=== PATIENT | female | born 1985 | race Caucasian/White ===

== ENCOUNTER 2017-04-18 13:48 | Emergency (ER) | payer MEDICAID, OTHER ==
[~2017-04-18] VITALS: Ht 162.6 cm; Wt 77.0 kg
[~2017-04-18 13:48] MED LIST: Z.0.NO CURRENT MEDS
[2017-04-18 13:50] VITALS: BP 130/78; PULSE 108; RESP 20; TEMP 98.4; O2SAT 99
--- NOTE | 2017-04-18 14:11 | PD ---
Physical Exam Time Seen by Provider: 14:08 Narrative 31 year old female with C/O of lower ABD pain associated with urinary frequency , urgency & nausea. Severity 7/10. She denies vaginal discharge or flank pain. Patient seen at triage desk. VS reviewed. Patient waiting bed placement. Data Data Last Documented VS Vital Signs Date Time Temp Pulse Resp B/P Pulse Ox O2 Delivery O2 Flow Rate FiO2 04/18/17 13:50 98.4 108 20 130/78 99 Room Air MDM Supervised Visit with SYLVIE: Seda Rendon Apr 18, 2017 14:11
[2017-04-18] MEDS ORDERED: KETOROLAC TROMETHAMINE 30 MG/ML (IVP) VIAL IV PUSH ONE (16:30)
[2017-04-18] MEDS ORDERED: SODIUM CHLOR 0.9% 1000 ML INJ 1,000 ML IV ONE (16:30)
--- NOTE | 2017-04-18 17:00 | PD ---
HPI Chief Complaint: Complaint Time Seen by Provider: 15:51 Travel History International Travel<30 days: No Contact w/Intl Traveler<30days: No Traveled to known affect area: No History of Present Illness HPI Patient is a 31-year-old female comes in complaining of lower abdominal pain and bloating for 2 weeks. She says she has been constipated and had only small bowel movements recently. She says the pain is across the lower part of her abdomen, and has been getting worse. She denies nausea or vomiting. She denies fever or chills. She has taken ibuprofen for pain without much relief. She denies dysuria, but has had urgency and frequency. Her last menstrual period was 2 weeks ago. [facility] Past Medical History ADHD: Yes (HX CHILD) Blood Disorders: No Anxiety: Yes Depression: Yes Cancer: No Cardiovascular Problems: No Chemotherapy: No Cerebrovascular Accident: No Diminished Hearing: No Endocrine: No Glaucoma: No Genitourinary: No Headaches: No Immune Disorder: No Musculoskeletal: No Neurologic: No Psychiatric: No Reproductive: No Respiratory: Yes ("COLLAPSED LUNG") Immunizations Current: No Migraines: No Radiation Therapy: No Seizures: No ?: Not LMP: 04/11/17 : 3 Para: 2 Miscarriage: 1 Tubal Ligation: Yes (08/2008) Past Surgical History Abdominal Surgery: Yes ( 2002) AICD: No Arteriovenous Shunt: No Cardiac Surgery: No Section: Yes (X 2) Ear Surgery: No Endocrine Surgery: No Eye Surgery: No Genitourinary Surgery: No Gynecologic Surgery: No Insulin Pump: No Joint Replacement: No Oral Surgery: No Pacemaker: No Thoracic Surgery: No Other Surgery: Yes ( 2002) Social History Alcohol Use: No Tobacco Use: Yes (10 DAILY) Substance Use: Yes (LORTAB, ROXICONTIN, INJECTED CRYSTAL METH ) Allergies-Medications (Allergen,Severity, Reaction): Coded Allergies: No Known Allergies (Verified , 11/15/12) Reported Meds & Prescriptions Reported Meds & Active Scripts Active Ultram (Tramadol HCl) 50 Mg Tab 50 Mg PO Q6H PRN Reported No Current Meds (Miscellaneous Medication) Misc Review of Systems Except as stated in HPI: all other systems reviewed are Neg General / Constitutional: No: Fever, Chills HENT: No: Headaches, Lightheadedness Cardiovascular: No: Chest Pain or Discomfort Respiratory: No: Shortness of Breath Gastrointestinal: Positive: Abdominal Pain, Constipation, No: Nausea, Vomiting Genitourinary: Positive: Urgency, Frequency, No: Dysuria Skin: No Rash, No Change in Pigmentation Neurologic: No: Weakness, Dizziness Physical Exam Narrative GENERAL: Awake and alert, in no acute distress. SKIN: Focused skin assessment warm/dry. HEAD: Atraumatic. Normocephalic. EYES: Pupils equal and round. No scleral icterus. No injection or drainage. ENT: No nasal bleeding or discharge. Mucous membranes pink and moist. NECK: Trachea midline. No JVD. CARDIOVASCULAR: Regular rate and rhythm. No murmur appreciated. RESPIRATORY: No accessory muscle use. Clear to auscultation. Breath sounds equal bilaterally. GASTROINTESTINAL: Abdomen soft, nondistended. Tender to palpation of the right lower quadrant. No rebound or guarding. : Performed in the presence of a female nurse. White, thick discharge. No cervical lesions. No CMT. MUSCULOSKELETAL: No obvious deformities. No clubbing. No cyanosis. No edema. NEUROLOGICAL: Awake and alert. No obvious cranial nerve deficits. Motor grossly within normal limits. Normal speech. PSYCHIATRIC: Appropriate mood and affect; insight and judgment normal. Data Data Last Documented VS Vital Signs Date Time Temp Pulse Resp B/P Pulse Ox O2 Delivery O2 Flow Rate FiO2 04/18/17 18:25 16 04/18/17 17:51 80 122/72 100 Room Air 04/18/17 13:50 98.4 Orders Complete Blood Count With Diff (04/18/17 16:08) Comprehensive Metabolic Panel (04/18/17 16:08) Urinalysis - C+S If Indicated (04/18/17 16:08) Ed Urine Pregnancytest Poc (04/18/17 16:08) Ct Abd/Pel W Iv Contrast(Rout) (04/18/17 ) Ketorolac Inj (Toradol Inj) (04/18/17 16:30) Sodium Chlor 0.9% 1000 Ml Inj (Ns 1000 M (04/18/17 16:30) Wet Prep Profile (04/18/17 16:47) Gc And Chlamydia Pcr (04/18/17 16:47) Iohexol 350 Inj (Omnipaque 350 Inj) (04/18/17 17:31) Labs Laboratory Tests Test 04/18/17 04/18/17 16:50 16:54 Clue Cells (Wet Prep) NONE SEEN Vaginal Trichomonas (Wet Prep) NONE SEEN Vaginal Yeast (Wet Prep) NONE SEEN Chlamydia trachomatis DNA NOT DETECTED (PCR) Neisseria gonorrhoeae DNA NOT DETECTED (PCR) White Blood Count 7.6 TH/MM3 Red Blood Count 4.32 MIL/MM3 Hemoglobin 13.4 GM/DL Hematocrit 39.1 % Mean Corpuscular Volume 90.7 FL Mean Corpuscular Hemoglobin 31.1 PG Mean Corpuscular Hemoglobin 34.3 % Concent Red Cell Distribution Width 12.0 % Platelet Count 242 TH/MM3 Mean Platelet Volume 7.5 FL Neutrophils (%) (Auto) 66.8 % Lymphocytes (%) (Auto) 27.0 % Monocytes (%) (Auto) 5.0 % Eosinophils (%) (Auto) 0.9 % Basophils (%) (Auto) 0.3 % Neutrophils # (Auto) 5.1 TH/MM3 Lymphocytes # (Auto) 2.1 TH/MM3 Monocytes # (Auto) 0.4 TH/MM3 Eosinophils # (Auto) 0.1 TH/MM3 Basophils # (Auto) 0.0 TH/MM3 CBC Comment DIFF FINAL Differential Comment Urine Color LIGHT-YELLOW Urine Turbidity CLEAR Urine pH 8.0 Urine Specific [place] 1.008 Urine Protein NEG mg/dL Urine Glucose (UA) NEG mg/dL Urine Ketones NEG mg/dL Urine Occult Blood NEG Urine Nitrite NEG Urine Bilirubin NEG Urine Urobilinogen LESS THAN 2.0 MG/DL Urine Leukocyte Esterase NEG Urine Squamous Epithelial <1 /hpf Cells Microscopic Urinalysis Comment CULT NOT INDICATED Sodium Level 137 MEQ/L Potassium Level 3.9 MEQ/L Chloride Level 101 MEQ/L Carbon Dioxide Level 26.4 MEQ/L Anion Gap 10 MEQ/L Blood Urea Nitrogen 9 MG/DL Creatinine 0.73 MG/DL Estimat Glomerular Filtration 93 ML/MIN Rate Random Glucose 85 MG/DL Calcium Level 9.5 MG/DL Total Bilirubin 0.4 MG/DL Aspartate Amino Transf 15 U/L (AST/SGOT) Alanine Aminotransferase 33 U/L (ALT/SGPT) Alkaline Phosphatase 82 U/L Total Protein 8.2 GM/DL Albumin 4.5 GM/DL [facility] Medical Decision Making Medical Screen Exam Complete: Yes Emergency Medical Condition: Yes Medical Record Reviewed: Yes Differential Diagnosis UTI versus appendicitis versus ovarian cyst versus GC/chlamydia versus vaginosis Narrative Course Patient is a 31-year-old female comes in complaining of lower abdominal pain for 2 weeks. Exam shows right lower quadrant tenderness. IV started, labs sent. CT abdomen and pelvis ordered. Patient given Toradol and fluids. Patient signed out to Dr. Sweeney to follow-up tests and disposition the patient. Scripts Tramadol (Ultram)50 Mg Tab50 Mg PO Q6H PRN (PAIN) #20 TAB Ref 0 Prov:James Sweeney MD 04/18/17 Condition: Stable Ashly Longoria MD Apr 18, 2017 17:00
--- NOTE | 2017-04-18 17:16 | PD ---
Physical Exam Date Seen by Provider: Apr 18, 2017 Narrative received sign out from dr munroe awaiting ct results and pelvic specimen results, evaluation for appy vs toa vs uti Data Data Last Documented VS Vital Signs Date Time Temp Pulse Resp B/P Pulse Ox O2 Delivery O2 Flow Rate FiO2 04/18/17 18:25 16 04/18/17 17:51 80 122/72 100 Room Air 04/18/17 13:50 98.4 Orders Complete Blood Count With Diff (04/18/17 16:08) Comprehensive Metabolic Panel (04/18/17 16:08) Urinalysis - C+S If Indicated (04/18/17 16:08) Ed Urine Pregnancytest Poc (04/18/17 16:08) Ct Abd/Pel W Iv Contrast(Rout) (04/18/17 ) Ketorolac Inj (Toradol Inj) (04/18/17 16:30) Sodium Chlor 0.9% 1000 Ml Inj (Ns 1000 M (04/18/17 16:30) Wet Prep Profile (04/18/17 16:47) Gc And Chlamydia Pcr (04/18/17 16:47) Iohexol 350 Inj (Omnipaque 350 Inj) (04/18/17 17:31) Labs Laboratory Tests Test 04/18/17 04/18/17 16:50 16:54 Clue Cells (Wet Prep) NONE SEEN Vaginal Trichomonas (Wet Prep) NONE SEEN Vaginal Yeast (Wet Prep) NONE SEEN White Blood Count 7.6 TH/MM3 Red Blood Count 4.32 MIL/MM3 Hemoglobin 13.4 GM/DL Hematocrit 39.1 % Mean Corpuscular Volume 90.7 FL Mean Corpuscular Hemoglobin 31.1 PG Mean Corpuscular Hemoglobin 34.3 % Concent Red Cell Distribution Width 12.0 % Platelet Count 242 TH/MM3 Mean Platelet Volume 7.5 FL Neutrophils (%) (Auto) 66.8 % Lymphocytes (%) (Auto) 27.0 % Monocytes (%) (Auto) 5.0 % Eosinophils (%) (Auto) 0.9 % Basophils (%) (Auto) 0.3 % Neutrophils # (Auto) 5.1 TH/MM3 Lymphocytes # (Auto) 2.1 TH/MM3 Monocytes # (Auto) 0.4 TH/MM3 Eosinophils # (Auto) 0.1 TH/MM3 Basophils # (Auto) 0.0 TH/MM3 CBC Comment DIFF FINAL Differential Comment Urine Color LIGHT-YELLOW Urine Turbidity CLEAR Urine pH 8.0 Urine Specific [place] 1.008 Urine Protein NEG mg/dL Urine Glucose (UA) NEG mg/dL Urine Ketones NEG mg/dL Urine Occult Blood NEG Urine Nitrite NEG Urine Bilirubin NEG Urine Urobilinogen LESS THAN 2.0 MG/DL Urine Leukocyte Esterase NEG Urine Squamous Epithelial <1 /hpf Cells Microscopic Urinalysis Comment CULT NOT INDICATED Sodium Level 137 MEQ/L Potassium Level 3.9 MEQ/L Chloride Level 101 MEQ/L Carbon Dioxide Level 26.4 MEQ/L Anion Gap 10 MEQ/L Blood Urea Nitrogen 9 MG/DL Creatinine 0.73 MG/DL Estimat Glomerular Filtration 93 ML/MIN Rate Random Glucose 85 MG/DL Calcium Level 9.5 MG/DL Total Bilirubin 0.4 MG/DL Aspartate Amino Transf 15 U/L (AST/SGOT) Alanine Aminotransferase 33 U/L (ALT/SGPT) Alkaline Phosphatase 82 U/L Total Protein 8.2 GM/DL Albumin 4.5 GM/DL [facility] Medical Record Reviewed: Yes Supervised Visit with SYLVIE: No Differential Diagnosis appy vs toa vs uti vs Narrative Course patient pain controlled, negative for uti, bacterial vaginosis, ct is negative for any diverticular disease, normal cbc and cmp as well. patient will be d/c with abd pain nos and ultram recc f/u with SUPERVISOR LAUNDRY for additional testing and evaluation Diagnosis Primary Impression: abdominal pain nos Patient Instructions: Abdominal Pain (ED), General Instructions Additional Instruction: please make appointment with SUPERVISOR LAUNDRY for further evaluation Scripts Tramadol (Ultram)50 Mg Tab50 Mg PO Q6H PRN (PAIN) #20 TAB Ref 0 Prov:James Sweeney MD 04/18/17 Disposition: 01 DISCHARGE HOME Condition: Stable James Sweeney MD Apr 18, 2017 17:16
[2017-04-18] MEDS ORDERED: IOHEXOL 350 MG/ML 10 ML VIAL (for RAD DIAG) IV ONE (17:31)
[2017-04-18 17:38] LABS: BLOOD, URINE NEG (NEG); GLUCOSE,URINE NEG (NEG); KETONE, URINE NEG (NEG); NITRITE,URINE NEG (NEG); SQUAMOUS EPITHELIAL CELL URINE <1 /hpf (0-5); URINE COLOR LIGHT-YELLOW (YELLW/STRAW)
[2017-04-18 17:41] LABS: AUTOMATED NEUTROPHIL # 5.1 TH/MM3 (1.8-7.7); BASOPHIL % 0.3 % (0.0-2.0); EOSINOPHIL # 0.1 TH/MM3 (0-0.4); EOSINOPHIL % 0.9 % (0.0-4.0); HEMATOCRIT 39.1 % (35.0-46.0); HEMO FLAGS DIFF FINAL; LYMPHOCYTE # 2.1 TH/MM3 (1.0-4.8); MEAN CELL VOLUME 90.7 FL (80.0-100.0); MEAN CORPUSCULAR HEMOGLOBIN 31.1 PG (27.0-34.0); MEAN CORPUSCULAR HGB CONC 34.3 % (32.0-36.0); NEUT % 66.8 % (16.0-70.0); PLATELET COUNT 242 TH/MM3 (150-450); RED BLOOD COUNT 4.32 MIL/MM3 (4.00-5.30); WHITE BLOOD COUNT 7.6 TH/MM3 (4.0-11.0)
[2017-04-18 17:43] LABS: COMMENT (UR) CULT NOT INDICATED; CULTURE IF INDICATED CULT NOT INDICATED
[2017-04-18 17:49] LABS: ANION GAP 10 MEQ/L (5-15); AST (GOT) 15 U/L (15-37); BICARBONATE 26.4 MEQ/L (21.0-32.0); BLOOD UREA NITROGEN 9 MG/DL (7-18); CHLORIDE 101 MEQ/L (98-107); GLOMERULAR FILTRATION RATE 93 ML/MIN (>89); POTASSIUM 3.9 MEQ/L (3.5-5.1); SODIUM (NA) 137 MEQ/L (136-145)
[2017-04-18 17:51] VITALS: BP 122/72; PULSE 80; RESP 15; O2SAT 100
[2017-04-18 17:51] LABS: ALT (GPT) 33 U/L (10-53)
[2017-04-18 17:53] LABS: ALKALINE PHOSPHATASE 82 U/L (45-117); TOTAL BILIRUBIN ADULT 0.4 MG/DL (0.2-1.0)
--- NOTE | 2017-04-18 18:06 | RADRPT ---
EXAM DATE/TIME: 04/18/2017 17:22 [place] COMPARISON: No previous studies available for comparison. INDICATIONS : Lower abdomen for two weeks. IV CONTRAST: 70 cc Omnipaque 350 (iohexol) IV ORAL CONTRAST: No oral contrast ingested. RADIATION DOSE: 9.96 CTDIvol (mGy) MEDICAL HISTORY : None SURGICAL HISTORY : None. ENCOUNTER: Initial ACUITY: 2 weeks PAIN SCALE: 7/10 LOCATION: Abdomen TECHNIQUE: Volumetric scanning of the abdomen and pelvis was performed. Using automated exposure control and ad justment of the mA and/or kV according to patient size, radiation dose was kept as low as reasonably achievable to obtain optimal diagnostic quality images. FINDINGS: LOWER LUNGS: The visualized lower lungs are clear. LIVER: Homogeneous density without lesion. There is no dilation of the biliary tree. No calcified gallston es. SPLEEN: Normal size without lesion. PANCREAS: Within normal limits. KIDNEYS: Normal in size and shape. There is no mass, stone or hydronephrosis. ADRENAL GLANDS: Within normal limits. VASCULAR: There is no aortic aneurysm. BOWEL/MESENTERY: The stomach, small bowel, and colon demonstrate no acute abnormality. There is no free intraperitone al air or fluid. ABDOMINAL WALL: Within normal limits. RETROPERITONEUM: There is no lymphadenopathy. BLADDER: No wall thickening or mass. REPRODUCTIVE: Minimal free fluid is noted within the cul-de-sac. INGUINAL: There is no lymphadenopathy or hernia. MUSCULOSKELETAL: Mild degenerative changes and scoliosis of the thoracolumbar spine. CONCLUSION: Minimal free fluid within the cul-de-sac. Mild degenerative changes and scoliosis of the thoracolumbar spine. Otherwise unremarkable CT of the abdomen and pelvis. Fito Us MD on April 18, 2017 at 18:01 Board Certified Radiologist. This report was verified electronically.
[2017-04-18 18:25] VITALS: RESP 16
[2017-04-18] MEDS ORDERED: ULTR50TA5 PO (18:56)
[2017-04-18 19:24] LABS: CHLAMYDIA PCR NOT DETECTED (NOT DETECT); NEISSERIA PCR NOT DETECTED (NOT DETECT)
== END 2017-04-18 19:42 | disposition home or self-care (01) ==
LOC: NEPD 13:48
DX: R10.30 Lower abdominal pain, unspecified (principal); F17.200 Nicotine dependence, unspecified, uncomplicated
CPT/HCPCS: 74177; 80053; 81001; 84703; 85025; 87210; 87491; 87591; 96361; 96374; 99285; J1885; J7030; Q9967